=== PATIENT | female | born 1995 | race Caucasian/White ===

== ENCOUNTER 2018-08-25 09:00 | Outpatient (CLI) | payer OTHER ==
[~2018-08-25] VITALS: Ht 170.2 cm; Wt 75.0 kg
[2018-08-25 09:07] VITALS: BP 120/92
== END 2018-08-25 10:55 | disposition home or self-care (01) ==
LOC: LDOP 09:00
PROVIDERS: ATTEND Obstetrics & Gynecology
DX: O42.913 Preterm premature rupture of membranes, unspecified as to length of time between rupture and onset of labor, third trimester (principal); Z3A.34 34 weeks gestation of pregnancy
CPT/HCPCS: 59025; 84112; 99211; G0463